=== PATIENT | female | born 1975 | race Caucasian/White ===

== ENCOUNTER 2017-01-09 07:58 | Day surgery (SDC) | payer OTHER ==
[2017-01-07 16:40] VITALS: BMI 29.3
--- NOTE | 2017-01-08 21:21 | HP ---
[facility] - Chief Complaint Chief Complaint: Patient is admitted for a LEEP conization of the cervix uteri because of high grade intraepthelial cervical lesion diagnosed by cervical colposcopic biopsies. History of Present Illness: Patient had an abnormal pap test followed by a colposcopy which revealed a high grade intraepithelial lesion of the cervix of the uterus. History Source: Patient Limitations to Obtaining History: No Limitations - Past Medical History Allergies/Adverse Reactions: Allergies Allergy/AdvReac Type Severity Reaction Status Date / Time minocycline [Minocycline] Allergy Intermediate Rash Verified 07/01/15 14:03 Penicillins Allergy Mild "i DON'T Verified 01/07/17 16:40 REMEMBER" Sulfa (Sulfonamide AdvReac Intermediate Hives Verified 07/01/15 14:03 Antibiotics) [Sulfa(Sulfonamide Antibiotics)] detergent Allergy Rash Uncoded 07/01/15 14:03 INSTITUTIONAL COOK: No: Alzheimer's, CVA, Dementia, Migraine, Multiple Sclerosis, Peripheral Neuropathy, Parkinson's, Seizure, Syncope, TIA, Vertigo, Other Cardiovascular: No: AFIB, Aneurysm, Aortic Insufficiency, Aortic Stenosis, CAD, CHF, Deep Vein Thrombosis, HTN, Hyperlipdemia, CA, Mitral Insufficiency, Mitral Stenosis, Murmur, Pulmonary Hypertension, Other Pulmonary: No: Asthma, Bronchitis, Cancer, COPD, O2 Dependent, Pneumonia, Previously Intubated, Pulmonary Embolus, Pulmonary Fibrosis, Sleep Apnea, Other Gastrointestinal: No: Ascites, Cancer, Constipation, Crohn's Disease, Diverticulitis, Diverticulosis, Esophageal Varices, Gastritis, GERD, GI Bleed, Hemorrhoids, Hiatal Hernia, Inflamatory Bowel Disease, Irritable Bowel Disease, Pancreatitis, Peptic Ulcer Disease, Ulcerative Colitis, Other Hepatobiliary: No: Cirrhosis, Cholelithiasis, Cholecystitis, Choledocholithiasis , Hepatitis A, Hepatitis B, Hepatitis C, Other Renal/: No: Renal Failure, Renal Inusuff, BPH, Cancer, Hematuria, Hemodialysis , Neurogenic Bladder, Renal Calculi, UTI, Other Reproductive: No: Ectopic , Endometriosis, Fibroids, PID, Polycystic Ovary Syndrome, Postmenopausal, Other ...LMP: 01/03/17 ...: No ...Para: 2 Heme/Onc: No: Anemia, B12 Deficiency, Bleeding Disorder, Cancer, Current Chemotherapy, Current Radiation Therapy, Hemochromatosis, Hypercoaguable State, Myeloproliferative Synd, Sickle Cell Disease, Sickle Cell Trait, Thrombocytopenia, Other Infectious Disease: Yes: Other (recurrent boils). No: AIDS, C-Diff, Herpes Zoster, HIV, MRSA, STD's, Tuberculosis, VREF Musculoskeletal: No: Bursitis, Chronic low back pain, Hemiparesis, Hemiplegia, Osteoarthritis, Paraplegia, Other Rheumatology: No: Fibromyalgia, Gout, Lupus, Rheumatoid Arthritis, Sarcoidosis, Vasculitis, Other ENT: No: Allergic Rhinitis, Sinusitis, Other Endocrine: No: [place]'s Disease, Lila's Disease, Diabetes Insipidus, Diabetes Mellitus, Hyperparathyroidism, Hyperthyroidism, Hypothyroidism, Osteopenia, SIADH, Other Dermatology: No: Basal Cell, Cellulitis, Eczema, Melanoma, Psoriasis, Squamous Cell (anxiety,depression,bipolar), Other - Current Medications Current Medications: Home Medications Medication Instructions Recorded Clonazepam [KlonoPIN] 0.5 mg PO TID #0 tablet 08/27/13 Quetiapine Fumarate [Seroquel -] 100 mg PO HS 09/01/14 Satellite Physical Exam - Physical Examination General Appearance: Well Nourished, Well Developed, Alert & Oriented x3 ENT: Clear, No Discharge, No masses Lung: Clear to auscultation Heart: Regular rate & rhythm, Normal S1, Normal S2 Breasts: Soft, Non-Tender, No masses bilaterally Abdomen: Soft, No tenderness, No CVA Extremities: No edema, No tenderness/swelling Pelvic Exam: Within normal limits External Genitalia, Within normal limits Vagina, Within normal limits Cervix, Within normal limits Uterus, Within normal limits [facility]: Intact, Alert, Oriented Satellite Impression/Plan - Impression/Plan Impression: Moderate cervical dysplasia of the uterus Operative Procedure: LEEP conization of the cervix of the uterus Date to be Performed: 01/09/17
[2017-01-09] MEDS ORDERED: PROPOFOL 20 ML ONE ×3 (08:32→09:20)
[2017-01-09] MEDS ORDERED: MIDAZOLAM HCL 2 MG/2 ML SINGLE DOSE VIAL ONE (08:32)
[2017-01-09] MEDS ORDERED: SUCCINYLCHOLINE CHLORIDE 200 MG/10 ML VIAL ONE (08:32)
[2017-01-09] MEDS ORDERED: DEXAMETHASONE SOD PHOSPHATE 4 MG/1 ML VIAL ONE (09:10)
[2017-01-09] MEDS ORDERED: KETOROLAC TROMETHAMINE 30 MG/1 ML VIAL ONE (09:10)
[2017-01-09] MEDS ORDERED: LIDOCAINE 1%/EPI 1:100000 (50 ML MULTI DOSE VIAL) ONE (09:24)
[2017-01-09] MEDS ORDERED: LIDOCAINE 1%/EPI 1:100000 (50 ML MULTI DOSE VIAL) INF ONE (09:27)
[2017-01-09] MEDS ORDERED: ONDANSETRON 4 MG/2 ML VIAL IVPUSH PRN (09:40)
[2017-01-09] MEDS ORDERED: oxyCODONE HCL 5 MG TABLET PO PRN (09:40)
[2017-01-09] MEDS ORDERED: LACTATED RINGERS SOLUTION 1,000 ML IV SCH (09:45)
[2017-01-09 10:51] VITALS: TEMP 97.7
[2017-01-09 11:44] VITALS: BP 126/59; PULSE 72
--- NOTE | 2017-01-09 12:42 | OP ---
OPERATION: 01/09/2017 PREOPERATIVE DIAGNOSIS: Cervical dysplasia, JOSE FRANCISCO-2 to 3. POSTOPERATIVE DIAGNOSIS: Cervical dysplasia, JOSE FRANCISCO-2 to 3. OPERATIVE PROCEDURE: Loop electrocautery excision procedure conization of cervix using colposcope. ESTIMATED BLOOD LOSS: Approximately 10 mL. ANESTHESIOLOGIST: Tiana Dorado MD The patient was brought to the operating room, placed in a supine position, given MAC anesthesia by Dr. Dorado, placed in lithotomy position, prepped and draped in the usual manner with acetic acid. The cervix was examined using the colposcope. The transformation zone was outlined using the colposcope. After the colposcopy was completed, the conization procedure was then started by using a 1 x 2 loop at 50/50 blend 1 power and the transformation zone was removed by using this method of cervical LEEP conization. A portion of the endocervical canal was then removed using a 1 x 1 loop and hemostasis was achieved using a 5-mm ball electrode. The patient tolerated the procedure well. Hemostasis was excellent. The patient was given a paracervical block using 1% Xylocaine with epinephrine and approximately 10 mL of this solution was used for the paracervical block for pain prevention. DAWSON DEVRIES M.D. [id number]
--- NOTE | 2017-01-10 13:27 | PATH ---
Surgical Pathology Report Patient Name: NADINE TREJO [facility]. Rec. #: [id number] /Age/Gender: 1975 (Age: 41) / F Account: [id number] Location: [facility] SURGICAL Taken: 01/09/2017 Received: 01/09/2017 Reported: 01/10/2017 Physicians: Mike Keane M.D. Specimen(s) Received A: ENDOCERVIX B: EXOCERVIX Clinical History Cervical dysplasia Final Diagnosis A. ENDOCERVIX, LEEP CONE BIOPSY: BENIGN ENDOCERVICAL MUCOSA. NEGATIVE FOR DYSPLASIA. B. EXOCERVIX, LEEP CONE BIOPSY: CERVICAL SQUAMOUS AND ENDOCERVICAL MUCOSA WITH FOCAL HIGH GRADE SQUAMOUS INTRAEPITHELIAL LESION (CERVICAL INTRAEPITHELIAL NEOPLASIA 2/JOSE FRANCISCO 2); FOCI OF LOW GRADE SQUAMOUS INTRAEPITHELIAL LESION ALSO PRESENT. SURGICAL RESECTION MARGINS: APPEAR NEGATIVE FOR HIGH GRADE DYSPLASIA. TRANSFORMATION ZONE: PRESENT. Electronically Signed Gordo Patrick M.D. Gross Description A. Received in formalin, labeled "endocervix" is a 1.4 x 0.5 x 0.2 cm emanuel, irregular, unoriented portion of soft tissue, consistent with a portion of cervix. The specimen is inked green, serially sectioned and entirely submitted in one cassette. B. Received in formalin, labeled "exocervix" are 11 emanule-pink, irregular, unoriented portions of soft tissue ranging from 0.4 x 0.2 x 0.2 cm to 2.0 x 0.8 x 0.3 cm. The specimens are inked green, sectioned and entirely submitted in 7 cassettes. 01/09/201701/09/2017
== END 2017-01-09 11:46 | disposition home or self-care (01) ==
LOC: JASU-SURG 07:58
PROVIDERS: ATTEND Obstetrics & Gynecology
PROC: 0UBC7ZX Excision of Cervix, Via Natural or Artificial Opening, Diagnostic (ICD-10-PCS; principal; 2017-01-09 09:00)
DX: D06.9 Carcinoma in situ of cervix, unspecified (principal)
CPT/HCPCS: 84703; 88307-TC; 94760